=== PATIENT | female | born 1985 | race Caucasian/White ===

== ENCOUNTER 2016-04-28 20:25 | Emergency (ER) | payer OTHER ==
[~2016-04-28] VITALS: Ht 157.5 cm; Wt 130.3 kg
[2016-04-28] MEDS ORDERED: FIORICET 50-301 EACH PO (23:18)
[2016-04-28] MEDS ORDERED: ZOFRAN ODT4 MG PO (23:18)
[2016-04-28] MEDS ORDERED: MEDROL DOSEPAK4 MG PO (23:18)
[2016-04-28 23:31] VITALS: BP 99/55
== END 2016-04-28 23:37 | disposition home or self-care (01) ==
LOC: EME 20:25
DX: G43.909 Migraine, unspecified, not intractable, without status migrainosus (principal); R11.2 Nausea with vomiting, unspecified; F17.200 Nicotine dependence, unspecified, uncomplicated
CPT/HCPCS: 99281; 99284; J1100; J1200; J1885; J2405; J7030